=== PATIENT | female | born 1965 | race Two or more races ===

== ENCOUNTER 2017-08-19 08:09 | Emergency (ER) | payer MEDICAID ==
[~2017-08-19] VITALS: Ht 165.1 cm; Wt 123.4 kg
[~2017-08-19 08:09] MED LIST: ADVIL; ALPR0.5T7 PO; HYDROCODON-ACETAMINOPHN 10-325; QUET200T3 PO; SERT-160; TRAM50TA2
[2017-08-19 08:16] VITALS: BP 116/84
== END 2017-08-19 12:00 | disposition home or self-care (01) ==
LOC: ER 08:09
DX: R07.9 Chest pain, unspecified (principal); I10 Essential (primary) hypertension; Z83.3 Family history of diabetes mellitus; Z82.49 Family history of ischemic heart disease and other diseases of the circulatory system; Z86.711 Personal history of pulmonary embolism; Z88.8 Allergy status to other drugs, medicaments and biological substances
CPT/HCPCS: 93005

== ENCOUNTER 2021-06-24 00:38 | Emergency (ER) | payer MEDICAID ==
[~2021-06-24 00:38] MED LIST changes: -QUET200T3 PO; +QUET200T4 PO
== END 2021-06-24 02:01 | disposition left against medical advice (07) ==
LOC: ER 00:42
DX: R19.7 Diarrhea, unspecified (principal); Z53.21 Procedure and treatment not carried out due to patient leaving prior to being seen by health care provider

== ENCOUNTER 2021-06-24 07:22 | Emergency (ER) | payer MEDICAID ==
[~2021-06-24] VITALS: Ht 165.1 cm; Wt 108.9 kg
[2021-06-24 07:23] VITALS: BP 157/107
== END 2021-06-24 08:50 | disposition home or self-care (01) ==
LOC: ER 07:22
DX: N64.4 Mastodynia (principal); R19.7 Diarrhea, unspecified; R10.11 Right upper quadrant pain; R10.12 Left upper quadrant pain; Z90.710 Acquired absence of both cervix and uterus; Z79.899 Other long term (current) drug therapy; Z88.8 Allergy status to other drugs, medicaments and biological substances